=== PATIENT | male | born 1995 ===

== ENCOUNTER 2023-08-04 23:22 | Emergency (ER) | payer OTHER ==
[~2023-08-04] VITALS: Ht 184 cm; Wt 83.0 kg
[2023-08-05 01:05] VITALS: BP 109/62
== END 2023-08-05 01:06 | disposition home or self-care (01) ==
LOC: ED 23:22
DX: S62.612A Displaced fracture of proximal phalanx of right middle finger, initial encounter for closed fracture (principal); S50.01XA Contusion of right elbow, initial encounter; V89.2XXA Person injured in unspecified motor-vehicle accident, traffic, initial encounter; Z23 Encounter for immunization
CPT/HCPCS: 73080; 73130; 90471; 90715; 99284-25; A9270